=== PATIENT | male | born 1985 | race Caucasian/White ===

== ENCOUNTER 2017-07-10 18:15 | Emergency (ER) | payer SELFPAY ==
[~2017-07-10] VITALS: Ht 180.3 cm; Wt 84.4 kg
--- NOTE | 2017-07-10 18:20 | NUR ---
C/O RLQ ABD PAIN . ALLERGIC REACTION ON NECK AFTER EATING ONIONS TODAY, HOSPITALIZED IN [place] X2 DAYS [employer] C/O HEMATEMESIS DIARRHEA. NAD NOTED, VSS, RESP EVEN AND UNLABORED, PT WAS PUT ON MONITOR, WAITING FOR MD CUNHA.
[2017-07-10] MEDS ORDERED: IV NS 0.9% 1,000 ML BAG IV ONE ×2 (18:30→20:00)
[2017-07-10] MEDS ORDERED: DEXAMETHASONE SOD PHOSPHATE 10 MG/ML VIAL IV ONE (18:30)
[2017-07-10] MEDS ORDERED: diphenhydrAMINE HCL 50 MG/ML VIAL IV ONE (18:30)
[2017-07-10] MEDS ORDERED: FAMOTIDINE/PF INJ 20 MG/2 ML VIAL IV ONE ×2 (18:30→18:39)
[2017-07-10] MEDS ORDERED: DEXAMETHASONE SOD PHOSPHATE 10 MG/ML VIAL ONE (18:38)
[2017-07-10] MEDS ORDERED: diphenhydrAMINE HCL 50 MG/ML VIAL ONE (18:39)
[2017-07-10 18:47] LABS: BASOPHILS % (AUTO) 0.5 % (0.0-2.0); HEMATOCRIT 32 % (39-51); HEMOGLOBIN 10.9 g/dL (13.5-17.5); LYMPHOCYTES # (AUTO) 1.5 /CMM (0.8-4.8); LYMPHOCYTES % (AUTO) 23.8 % (20.0-44.0); MEAN CORPUSCULAR HGB CONC 34 g/dl (31.0-36.0); MEAN CORPUSCULAR VOLUME 84 fL (80-96); MONOCYTES # (AUTO) 0.6 /CMM (0.1-1.30); MONOCYTES % (AUTO) 9.2 % (2.0-12.0); NEUTROPHILS # (AUTO) 4.2 /CMM (1.8-8.9); NEUTROPHILS % (AUTO) 63.5 % (43.0-81.0); PLATELET COUNT (AUTO) 298 /CMM (150-450); RDW COEFFICIENT OF VARIATION 18.7 (11.5-15.0); RED BLOOD CELL COUNT(AUTO) 3.85 MIL/uL (4.5-6.0); WHITE BLOOD COUNT (AUTO) 6.5 K/uL (4.3-11.0)
[2017-07-10 18:58] LABS: CALCIUM, SERUM 8.7 mg/dL (8.5-10.1); CARBON DIOXIDE 27 mmol/L (21-32); CHLORIDE 108 mmol/L (98-107); CREATININE 0.8 mg/dL (0.6-1.3); GLUCOSE 111 mg/dL (74-106); POTASSIUM 3.8 mmol/L (3.5-5.1); SODIUM SERUM 142 mmol/L (136-145); UREA NITROGEN, BLOOD 17 mg/dL (7-18)
[2017-07-10] MEDS ORDERED: MORPHINE SULFATE INJ 2 MG/ML DISP.SYRIN IV ONE (19:00)
[2017-07-10] MEDS ORDERED: ONDANSETRON HCL/PF 4 MG/2 ML VIAL IV ONE (19:00)
[2017-07-10] MEDS ORDERED: ONDANSETRON HCL/PF 4 MG/2 ML VIAL ONE (19:04)
[2017-07-10 19:05] LABS: ALANINE AMINOTRANSFERASE 18 U/L (12-78); ALBUMIN 3.3 g/dL (3.4-5.0); ALKALINE PHOSPHATASE 65 U/L (46-116); ASPARTATE AMINOTRANSFERASE 12 U/L (15-37); BILIRUBIN,DIRECT 0.1 mg/dL (0.0-0.2); BILIRUBIN,TOTAL 0.2 mg/dL (0.2-1.0); LIPASE 83 U/L (73-393); TOTAL PROTEIN, SERUM 6.7 g/dL (6.4-8.2)
[2017-07-10] MEDS ORDERED: MORPHINE SULFATE INJ 4 MG/ML DISP.SYRIN ONE (19:05)
[2017-07-10 19:12] LABS: INR 0.87 (0.85-1.15); TROPONIN I < 0.017 ng/mL (0.00-0.056)
[2017-07-10] MEDS ORDERED: IV NS 0.9% 0 ML IV ONE (19:13)
[2017-07-10] MEDS ORDERED: IOHEXOL-300 100 ML VIAL IV ONE (19:13)
--- NOTE | 2017-07-10 19:15 | NUR ---
PT REFUSED TO GO CTSC[facility], DEMANDING FOR THE DR TO GIVE HIM STRONGER PAIN MEDICATION, BEFORE HE GOES TO [facility].
--- NOTE | 2017-07-10 19:30 | NUR ---
NEED TO TRANSFER THE PT TO ROOM 14. PT WAS BECOMING VERY AGITATED AND VERBALLY ABUSIVE TOWARDS STAFF.
--- NOTE | 2017-07-10 19:37 | NUR ---
urine collected, sent to lab
--- NOTE | 2017-07-10 19:51 | NUR ---
pt to ctscan
[2017-07-10 19:55] LABS: APPEARANCE,URINE Clear (CLEAR); BILIRUBIN,URINE Negative (NEGATIVE); BLOOD, URINE Negative Ery/uL (NEGATIVE); COLOR,URINE Yellow (YELLOW); KETONES,URINE Negative (NEGATIVE); LEUKOCYTE ESTERASE ,URINE Negative (NEGATIVE); NITRITE, URINE Negative (NEGATIVE); PROTEIN,URINE Negative (NEGATIVE); UGLUCOSE Negative (NEGATIVE); UROBILINOGEN,URINE 0.2 EU/dL (0.2)
--- NOTE | 2017-07-10 20:15 | NUR ---
DR NICHOLS WAS SPEAKING TO THE PATIENT AND THE PT KEPT DEMANDING FOR MORE PAIN MEDICATIONS, AND STARTED BECOMING AGGRESSIVE AND VERBALLY ABUSIVE (USED RACIAL SLUR) TOWARDS THE DR AND THE STAFF. HE STARTED REMOVING MEDICAL EQUIPMENTS AND THROWING IT TOWARDS STAFF.
[2017-07-10 20:30] VITALS: BP 118/72
--- NOTE | 2017-07-10 20:30 | NUR ---
Patient does not wish to proceed with medical care recommended by Dr. Dean. Patient given information related to possible complications, up to and including , which could occur as a result of leaving the hospital at this time. Patient refused to sign AMA form.
== END 2017-07-10 23:53 | disposition left against medical advice (07) ==
LOC: ER 18:17
DX: R10.84 Generalized abdominal pain (principal); Z76.5 Malingerer [conscious simulation]; Z91.018 Allergy to other foods
CPT/HCPCS: 36415; 71045; 74176; 80048; 80076; 81001; 83690; 84484; 85025; 85730; 86850; 93005; 96360; 96361; 96374; 96375; 99285; A4606; J1100; J1200; J2270; J2405; J3490; J7030 ×2; Q9967; Z7610; 81000-TC; J7050